=== PATIENT | male | born 1950 | race Asian ===

== ENCOUNTER 2021-10-13 08:56 | Day surgery (SDC) | payer MEDICARE, SELFPAY ==
[~2021-10-13] VITALS: Ht 175.3 cm; Wt 64.4 kg
[2021-10-13] MEDS ORDERED: fentaNYL citrate 0.05 MG/ML VIAL ONE (11:21)
[2021-10-13] MEDS ORDERED: LIDOCAINE 2% 100 MG/5 ML UJET TP ONE (11:21)
[2021-10-13] MEDS ORDERED: fentaNYL citrate 0.05 MG/ML VIAL IVP ONE (11:50)
== END 2021-10-13 12:30 | disposition home or self-care (01) ==
LOC: MDS 08:56 → MMU 08:56 → MDS 12:30
PROVIDERS: ATTEND Internal Medicine Gastroenterology
DX: Z12.11 Encounter for screening for malignant neoplasm of colon (principal); D12.3 Benign neoplasm of transverse colon; Z86.010 Personal history of colon polyps; E78.5 Hyperlipidemia, unspecified; Z20.822 Contact with and (suspected) exposure to COVID-19; Z79.899 Other long term (current) drug therapy
CPT/HCPCS: 45385; 87426; J3010